=== PATIENT | male | born 1990 | race Caucasian/White ===

== ENCOUNTER 2017-12-19 13:54 | Emergency (ER) | payer OTHER, SELFPAY ==
[2017-12-19 13:55] VITALS: BP 133/81; PULSE 86; RESP 18; TEMP 36.8; O2SAT 100; BMI 23.6
--- NOTE | 2017-12-19 14:02 | CT_ITS ---
STUDY: CT ABDOMEN AND PELVIS WITHOUT CONTRAST REASON FOR EXAM: Male, 27 years old. Left flank pain RADIATION DOSAGE (If Supplied By Facility): CTDIvol = ( 5.69 ) mGy, DLP = ( 257.70 ) mGycm TECHNIQUE: Transaxial images were obtained from the dome of the diaphragm to the symphysis pubis without oral contrast, and without intravenous contrast. Sagittal and coronal images were reconstructed. Individualized dose optimization techniques were used for this CT. COMPARISON: None. FINDINGS: The lung bases are clear. The liver is normal with no dilated intrahepatic biliary radicles. The gallbladder is normal with no gallstones and no pericholecystic fluid collection or streakiness. The spleen, pancreas and both adrenals are normal. There is a 6.3 mm obstructing calculus in the left ureterovesical junction with subsequent left hydroureteronephrosis. 2 tiny 2 mm nonobstructing right calyceal calculi are seen. The stomach is normal. There is no bowel distention, acute appendicitis or diverticulitis. No abnormally constricting large bowel lesions. The abdominal wall is intact. There is no ascites, free intraperitoneal air or any evidence of epiploic appendagitis. The vascular structures in the retroperitoneum are normal The bones and joints seen are normal with no osteolytic or osteoblastic changes There is no retrocrural, retroperitoneal or mesenteric adenopathy. There is no mesenteric mistiness The urinary bladder is normal.. There is no inguinal or pelvic adenopathy and there is no inguinal hernia The visualized lung bases are unremarkable.. CT/Abdomen/Pelvis without Cont IMPRESSION: A left hydroureteronephrosis secondary to a 6.3 mm obstructing calculus in the left ureterovesical junction. No acute appendicitis or diverticulitis. Electronically Signed: Sameerkushal LoveSusie, at 14:39 EDT Tel , Service support ,
[2017-12-19] MEDS: Ondansetron 4 MG/2 ML Vial IV (14:08)
[2017-12-19] MEDS: Ketorolac 30 MG/ML Syringe IV (14:08)
[2017-12-19] MEDS: 0.9% Normal Saline 1,000 ML 250 ML IV (14:08)
[2017-12-19 14:32] LABS: Anion Gap 7 (5-15); BUN 15 mg/dL (7-18); BUN/Creat Ratio 11.8 RATIO (10-20); Calcium,Total 9.3 mg/dL (8.5-10.1); Chloride 99 mmol/L (98-107); Creatinine, Serum 1.27 mg/dL (0.70-1.30); EST Glomerular Filtration Rate 73 mL/min (>60); Est Glom Filt Rate - Afr Amer 89 mL/min (>60); Estimated Creatinine Clearance 74.45 ml/min; Glucose 104 mg/dL (74-106); Potassium 3.5 mmol/L (3.5-5.1); Sodium Level 133 mmol/L (136-145)
[2017-12-19 14:37] LABS: Absolute Lymphocyte Count 1.03 X10^3/ul (0.83-4.51); Absolute Neutrophil Count 10.9 X10^3/uL (2.0-7.7); Basophil# 0.01 X10^3/uL; Basophil% 0.1 % (0-1); Eosinophil# 0.01 X10^3/uL; Eosinophils% 0.1 % (0-5); Hematocrit 42.4 % (40-54); Hemoglobin 14.9 g/dl (13.0-16.5); Lymphocyte # 1.03 X10^3/ul (4.0); Lymphocyte % 8.1 % (19-41); Mean Corp Hgb Conc 35.1 g/gl (32-36); Mean Corpuscular Hgb 31.7 pg (27.0-32.0); Mean Corpuscular Volume 90.2 fL (80-94); Mean Platelet Vol. 10.3 fl (6.2-12.0); Monocyte# 0.83 X10^3/uL; Monocyte% 6.5 % (0-10); Neutrophil # 10.85 X10^3/uL (2.7-7.7); POSITIVE COUNT NO; POSITIVE DIFFERENTIAL NO; POSITIVE MORPHOLOGY NO; Platelet Count 173 K/mm3 (150-450); RBC Distribution Width CV 12.3 % (11.6-14.6); RBC Distribution Width SD 40.3 fl (35.1-43.9); White Blood Count 12.8 K/mm3 (4.4-11.0)
[2017-12-19 15:25] LABS: Mucous, Urine 0 SEEN /hpf (<or=2+); Squamous Epithelial Cells - UA 0 SEEN /hpf (0-5)
[2017-12-19 15:27] LABS: Color, Urine Yellow (Yellow); Glucose, Dipstick Normal (Normal); Ketone-Dipstick 5 mg/dl (Negative); Leukocyte Esterase-Dipstick 25 /ul (Negative); Nitrite-Dipstick Negative (Negative); Occult Blood-Urine 250 /ul (Negative); Protein-Dipstick 15 mg/dl (Negative); Specific Gravity, Urine 1.015 (1.002-1.030); Urine Bilirubin Dipstick Negative (Negative); Urine Clarity Clear (Clear); Urine Urobilinogen Normal (Normal); Urine pH 6.5 (5.0 - 8.0)
[2017-12-19 16:17] LABS: White Blood Cells 5-10 SEEN /hpf (0-5)
[2017-12-19 16:18] LABS: Red Blood Cells-Urine 50-100 SEEN /hpf (0-5)
[2017-12-19 16:19] LABS: Bacteria 2+ /hpf (None Seen)
--- NOTE | 2017-12-19 16:23 | ED.VISSUMM ---
- ER Visit Summary Date of Service: 12/19/17 Chief Complaint: Left flank pain History of Present Illness: The patient is a 27 M who presents with left flank pain. Started yesterday. He noted that it traveled to his left lower quadrant. He had associated nausea. No hematuria or dysuria. He does have a kidney stone history about 4 years ago. He tried Tylenol at home without any relief Physical Examination: Vital signs reviewed. HEENT exam unremarkable. Heart is regular rate and rhythm without murmurs. Lungs are clear to auscultation. Abdomen is soft and nontender. Extremities reveal no edema. Skin exam normal. Neurologic exam normal. Test Results: Labs unremarkable except for a white blood cell count of 12.8 and a sodium of 133. Urinalysis reveals blood. CAT scan reveals a 6.3 mm stone at the left UVJ Emergency Department Course and Treatment: Patient was given Toradol, normal saline and Zofran. He feels much better. I will give him [place], Flomax for home. He will be given urology follow-up Treatment Plan: [] Disposition: Discharge Impression: Left ureterolithiasis This note was generated with [employer] dictation software. It may contain incorrect words, spelling, and punctuation that were not noted in review of the chart prior to signing ED Disposition - Plan for ED Patient: Chief Complaint: Flank Pain Referrals: Arvin Church DO [Primary Care Provider] -
--- NOTE | 2017-12-19 16:24 | ED.DEP ---
ED Disposition - Plan for ED Patient: Disposition: Home or Assisted Living Chief Complaint: Flank Pain Instructions: ED Stone Renal W Colic Prescriptions: Hydrocodone Bitart/Apap 5-325 [[place] 5MG-325MG] 1 tab PO Q6H PRN PRN 3 Days #10 tab PRN Reason: Pain Tamsulosin HCl [Flomax] 0.4 mg PO DAILY #7 cap Referrals: Arvin Church DO [Primary Care Provider] - Vikas Lock MD [STAFF PHYSICIAN] -
[2017-12-19 16:26] VITALS: BP 122/81; PULSE 62; RESP 16
== END 2017-12-19 16:35 | disposition home or self-care (01) ==
PROVIDERS: Emergency Provider Emergency Medicine; Family Provider Family Medicine; PCP Family Medicine
DX: N20.1 Calculus of ureter (principal); Z87.442 Personal history of urinary calculi
CPT/HCPCS: 74176; 80048; 81001; 85025; 96361; 96374; 96375; 99283; J7030; J2405

== ENCOUNTER → 2017-12-28 04:40 | Outpatient (CLI) | payer OTHER, SELFPAY ==
[2018-01-12 20:08] LABS: Ca Hydrogen Phos 53 % (.); Calcium Phosphate 45 % (.); Size 4x3x2 mm (.)
== END ==
PROVIDERS: Family Provider Family Medicine; PCP Family Medicine; Visit Provider Nurse Practitioner Adult Health
DX: N20.0 Calculus of kidney (principal)
CPT/HCPCS: 82360